=== PATIENT | male | born 2000 | race African-American/Black ===

== ENCOUNTER 2019-10-06 19:00 | Emergency (ER) | payer MEDICAID ==
[~2019-10-06] VITALS: Ht 185.4 cm; Wt 67.0 kg
[2019-10-06] MEDS ORDERED: IPRATROPIUM BROMIDE (0.02%) 0.5MG/2.5ML NEB HHN STA (20:27)
[2019-10-06] MEDS ORDERED: ACETAMINOPHEN 325MG TABLET PO STA (20:27)
[2019-10-06] MEDS ORDERED: ALBUTEROL (0.083%) 2.5MG/3ML NEB HHN STA (20:27)
[2019-10-06 21:45] VITALS: BP 145/75
== END 2019-10-06 21:47 | disposition home or self-care (01) ==
LOC: ER 19:00
DX: R06.00 Dyspnea, unspecified (principal); J45.909 Unspecified asthma, uncomplicated; F17.290 Nicotine dependence, other tobacco product, uncomplicated; F12.10 Cannabis abuse, uncomplicated
CPT/HCPCS: 94640; 99283; J7611; Z7610